=== PATIENT | female | born 1985 | race Hispanic/Latino ===

== ENCOUNTER 2023-09-17 04:00 | Emergency (ER) | payer SELFPAY | END 2023-09-17 04:31 | disposition home or self-care (01) | LOC: CSHERS 04:00 | DX: L50.9 Urticaria, unspecified (principal); M79.89 Other specified soft tissue disorders; I10 Essential (primary) hypertension; F17.210 Nicotine dependence, cigarettes, uncomplicated | CPT/HCPCS: 99283 ==

== ENCOUNTER 2024-07-05 15:42 | Emergency (ER) | payer OTHER, SELFPAY ==
[~2024-07-05 15:42] MED LIST: Iopamidol 300 61% 100 ML VIAL FS ONE
[2024-07-05 17:20] LABS: #Basophils 0.06 10x3/uL (0.0-0.2); #Eosinphils 0.31 10x3/uL (0.0-0.5); #Monocytes 0.49 10x3/uL (0.0-1.1); %Basophils 0.6 % (0.0-2.0); %Eosinophils 2.9 % (0.0-6.0); %Lymphocytes 33.1 % (18.0-47.0); %Monocytes 4.6 % (0.0-10.0); %Neutrophils 58.4 % (40.0-75.0); Hematocrit 37.5 % (34.9-44.5); Hemoglobin 12.1 g/dL (12.0-15.5); Mean Corpuscular HGB CONC 32.3 g/dL (32.0-36.0); Mean Corpuscular Volume 86.8 fL (81.6-98.3); Platelet Count 349 10x3/uL (150-450); RBC Distribution Width 12.7 % (11.5-14.5); Red Blood Cell (RBC) Count 4.32 10x6/uL (3.90-5.03); White Blood Cell (WBC) Count 10.8 10x3/uL (3.5-10.5)
[2024-07-05 17:29] LABS: BHCG - Serum Negative (NEGATIVE); Pregs Control Background? CLEAR/WHITE (CLR/WHITE); Pregs Control Bar Appear? YES (CONTROL BAR)
[2024-07-05 17:36] LABS: ALT (SGPT) 27 U/L (8-55); AST (SGOT) 18 U/L (5-34); Albumin 3.5 g/dL (3.5-5.0); Alkaline Phosphatase 72 U/L (40-110); Anion Gap 12 mmol/L (10-20); BUN (Urea Nitrogen) 9 mg/dL (7.0-18.7); Bilirubin, Total 0.2 mg/dL (0.2-1.2); Calc. Creatinine Clearance 0 mL/min (70-130); Calcium 9.4 mg/dL (7.8-10.44); Carbon Dioxide 24 mmol/L (22-29); Chloride 105 mmol/L (98-107); Estimated GFR 113; Globulin 3.4 g/dL (2.4-3.5); Glucose 120 mg/dL (70-105); Potassium 3.6 mmol/L (3.5-5.1); Protein, Total 6.9 g/dL (6.0-8.3); Sodium 137 mmol/L (136-145)
[2024-07-05] MEDS ORDERED: predniSONE 20 MG TAB ONE (18:57)
== END 2024-07-05 19:08 | disposition home or self-care (01) ==
LOC: CSHERS 15:42
DX: J32.0 Chronic maxillary sinusitis (principal); F17.210 Nicotine dependence, cigarettes, uncomplicated; I10 Essential (primary) hypertension
CPT/HCPCS: 36415; 70491; 80053; 84703; 85025; J7512; Q9967

== ENCOUNTER 2025-07-01 13:51 | Outpatient (CLI) | payer OTHER | END 2025-07-01 13:52 | disposition home or self-care (01) | LOC: CSHMAMMO 13:51 | PROVIDERS: ATTEND Nurse Practitioner Family | DX: N63.23 Unspecified lump in the left breast, lower outer quadrant (principal) | CPT/HCPCS: 76642; 77066; G0279 ==